=== PATIENT | male | born 1990 | race Caucasian/White ===

== ENCOUNTER 2017-04-26 04:24 | Emergency (ER) | payer BC ==
--- NOTE | 2017-04-26 04:53 | ED CLINICAL REPORT ---
Clinical Report - Physicians/Mid Levels [facility] [address] [place] [address] 04/26/2017 4:27 Patient: SERGO ROSSI Time Seen: 04:36. Arrived- By private vehicle. Historian- patient. HISTORY OF PRESENT ILLNESS Chief Complaint: SKIN RASH. This started about 2 hours ago and is still present. It was abrupt in onset and has been constant. It is described as itchy. It has been located on the trunk and in the right and left axilla. No cause has been identified. REVIEW OF SYSTEMS No chills, fever, sweats, calf pain or chest pain. No cough, difficulty breathing, pedal edema, palpitations or abdominal pain. No constipation, diarrhea, nausea, vomiting or urinary problems. All systems otherwise negative, except as recorded above. PAST HISTORY Problems: Back Pain. Obesity. Additional Surgeries: no known surgeries. Medications: Phentermine HCl Oral. Allergies: Amoxicillin. SOCIAL HISTORY Never smoker. No alcohol use or drug use. FAMILY HISTORY Denies family medical history. ADDITIONAL NOTES The nursing notes have been reviewed. PHYSICAL EXAM Vital Signs: 04/26/2017 04:31 BP: 121/71. HR: 107. RR: 28. O2 saturation: 97%. Temp: 98.5 F. Pain level now: 0/10. Have been reviewed. Appearance: Alert. He is morbidly obese. Eyes: Pupils equal, round and reactive to light. ENT: Pharynx normal. Neck: Neck supple. CVS: Normal heart rate and rhythm. Heart sounds normal. Respiratory: No respiratory distress. Breath sounds normal. Abdomen: Nontender. No organomegaly. Skin: The rash is generalized. The rash is urticarial, maculopapular and patchy. Extremities: Normal external inspection. No calf tenderness. PROGRESS AND PROCEDURES Course of Care: Patient is stable. Patient/family counseled. Old medical records ordered. Old records unavailable. Disposition: Discharged. Condition: stable. CLINICAL IMPRESSION Allergic reaction with skin rash of unknown cause. INSTRUCTIONS Warnings: GENERAL WARNINGS: Return or contact your physician immediately if your condition worsens or changes unexpectedly, if not improving as expected, or if other problems arise. Prescription Medications: Prednisone 20 mg: take 2 orally every day for 4 days. Dispense sufficient quantity. No refills. (start this on April 27 to complete the course started in the ER) OTC Medications: Benadryl (available over the counter): take according to label instructions. Follow-up: Follow up with your doctor in five days. Call for the next available appointment. Understanding of the discharge instructions verbalized by patient. (Electronically signed by Jevon Simon MD 04/26/2017 10:02)
--- NOTE | 2017-04-26 04:53 | ED NURSING NOTES ---
Clinical Report - Nurses [facility] [address] [place] [address] 04/26/2017 4:27 Patient: SERGO ROSSI TRIAGE Triage time 04:31. Acuity: LEVEL 3. Chief Complaint: SKIN RASH. Alert. ISAIAH COMA SCORE: Benedict Coma Scale: 15- eyes open spontaneously (4); best verbal response- oriented x 4 (5); best motor response- obeys commands (6). --04:36 Gama Rocha R.N. 04:31 04/26/17. BP: 121/71. HR: 107. RR: 28. O2 saturation: 97% on room air. Temp: 98.5 F. Pain level now: 0/10. --04:36 Gama Rocha R.N. Weight: 103.4 kg stated. Height/Length: 67 inches Per Patient. BMI: 35.7. --04:30 Gama Rocha R.N. Medications Phentermine HCl Oral. --04:32 Gama Rocha R.N. Allergies Amoxicillin. --04:32 Gama Rocha R.N. History Arrived by private vehicle. Historian: patient. Unaccompanied. Reported as (ears, axilla, groin, wasteline, shoulders). Onset. (2 hours ago). It is described as itchy. SOCIAL HX: Never smoker. No alcohol use or drug use. FALL RISK ASSESSMENT: Fall risk assessment completed. No fall risk identified. NUTRITIONAL RISK ASSESSMENT: The nutritional risk assessment revealed no deficiencies. FUNCTIONAL ASSESSMENT: Functional assessment: no impairments noted. LEARNING NEEDS ASSESSMENT: The learning needs assessment revealed no barriers. --04:36 Gama Rocha R.N. PROBLEMS: Obesity. --04:33 Gama Rocha R.N. Back Pain. --04:35 Gama Rocha R.N. ADDITIONAL SURGERIES: no known surgeries. Interventions ID band on patient. To treatment room. --04:36 Gama Rocha R.N. PHYSICAL ASSESSMENT Ambulatory to room. ( see triage notes). GENERAL / NEURO / PSYCH: Alert. Appears anxious. Does not appear in pain or distress. Oriented X 4. HEENT: Mucous membranes are pink. RESPIRATORY: Respirations not labored. Breath sounds within normal limits. ( Airway is patent). CVS: No abnormal heart sounds. Capillary refill less than 2 seconds. Pulses within normal limits. GI / : No abdominal tenderness. ( bowels sounds wnl). SKIN: Skin is warm and dry. Skin rash present- see triage. --04:37 Gama Rocha R.N. NURSING PROGRESS NOTES Pulse oximeter placed on patient. Patient gowned. Head of bed elevated. Reassurance given. Two patient identifiers checked. Call light placed in reach. Side rails up x 1. Bed placed in lowest position. Brakes of bed on. Patient ready for evaluation- chart flagged. Patient waiting for evaluation. --04:37 Gama Rocha R.N. 04:57 04/26/2017 Prednisone PO Tablets 40 mg given. Allergies verified and confirmed 5 rights. --05:02 Gama Rocha R.N. DISPOSITION / DISCHARGE Departure time: 05:03. Condition at departure: stable. No learning barriers present. Discharge instructions provided and reviewed with the patient. Reviewed warnings. Reviewed medication(s) side effects, precautions, dosing and course information. Prescription(s) given to the patient. Treatments reviewed. Reviewed referrals for followup. Patient verbalized understanding. Written instructions provided in Mongolian. The patient was discharged home, accompanied by spouse and unaccompanied at time of discharge. He left the Emergency Department ambulatory and via private vehicle. Patient driving. --05:03 Gama Rocha R.N. 05:02 04/26/17. HR: 104. O2 saturation: 94% on room air. --05:03 Gama Rocha R.N. 04:31 04/26/17. BP: 121/71. HR: 107. RR: 28. O2 saturation: 97% on room air. Temp: 98.5 F. Pain level now: 0/10. --05:03 Gama Rocha R.N. Locked/Released at 04/26/2017 5:03 by Gama Rocha R.N.
--- NOTE | 2017-04-26 04:53 | ED CLINICAL REPORT ---
Clinical Report - Physicians/Mid Levels [facility] [address] [place] [address] 04/26/2017 4:27 Patient: SERGO ROSSI Time Seen: 04:36. Arrived- By private vehicle. Historian- patient. HISTORY OF PRESENT ILLNESS Chief Complaint: SKIN RASH. This started about 2 hours ago and is still present. It was abrupt in onset and has been constant. It is described as itchy. It has been located on the trunk and in the right and left axilla. No cause has been identified. REVIEW OF SYSTEMS No chills, fever, sweats, calf pain or chest pain. No cough, difficulty breathing, pedal edema, palpitations or abdominal pain. No constipation, diarrhea, nausea, vomiting or urinary problems. All systems otherwise negative, except as recorded above. PAST HISTORY Problems: Back Pain. Obesity. Additional Surgeries: no known surgeries. Medications: Phentermine HCl Oral. Allergies: Amoxicillin. SOCIAL HISTORY Never smoker. No alcohol use or drug use. FAMILY HISTORY Denies family medical history. ADDITIONAL NOTES The nursing notes have been reviewed. PHYSICAL EXAM Vital Signs: 04/26/2017 04:31 BP: 121/71. HR: 107. RR: 28. O2 saturation: 97%. Temp: 98.5 F. Pain level now: 0/10. Have been reviewed. Appearance: Alert. He is morbidly obese. Eyes: Pupils equal, round and reactive to light. ENT: Pharynx normal. Neck: Neck supple. CVS: Normal heart rate and rhythm. Heart sounds normal. Respiratory: No respiratory distress. Breath sounds normal. Abdomen: Nontender. No organomegaly. Skin: The rash is generalized. The rash is urticarial, maculopapular and patchy. Extremities: Normal external inspection. No calf tenderness. PROGRESS AND PROCEDURES Course of Care: Patient is stable. Patient/family counseled. Old medical records ordered. Old records unavailable. Disposition: Discharged. Condition: stable. CLINICAL IMPRESSION Allergic reaction with skin rash of unknown cause. INSTRUCTIONS Warnings: GENERAL WARNINGS: Return or contact your physician immediately if your condition worsens or changes unexpectedly, if not improving as expected, or if other problems arise. Prescription Medications: Prednisone 20 mg: take 2 orally every day for 4 days. Dispense sufficient quantity. No refills. (start this on April 27 to complete the course started in the ER) OTC Medications: Benadryl (available over the counter): take according to label instructions. Follow-up: Follow up with your doctor in five days. Call for the next available appointment. Understanding of the discharge instructions verbalized by patient. (Electronically signed by Jevon Simon MD 04/26/2017 10:02)
--- NOTE | 2017-04-26 04:53 | ED ORDER SUMMARY ---
..... Patient: SERGO ROSSI OrderSheet [facility] VisitID: [id number] [address] [place] [place] [address] 27y, M Registration Date/Time: 04/26/2017 ORDER SHEET Weight: 103.4 kg (stated) Allergies: Amoxicillin GENERAL ORDERS: MEDICATION ORDERS: Prednisone PO 40 mg (NOW) (04:51 04/26/2017 Sophia PEREZ) (Ack 4:54 DDavis R.N.) (5:02 DDavis R.N.) IV FLUIDS: ORDER SHEET NOTES: [Electronically signed by Gama Rocha R.N. (05:03 04/26/2017)] [Electronically signed by Jevon Simon MD (10:02 04/26/2017)] [Electronically locked/signed by Gama Rocha R.N. (05:03 04/26/2017)]
--- NOTE | 2017-04-26 04:53 | ED ORDER SUMMARY ---
..... Patient: SERGO ROSSI OrderSheet [facility] VisitID: [id number] [address] [place] [address] 27y, M Registration Date/Time: 04/26/2017 ORDER SHEET Weight: 103.4 kg (stated) Allergies: Amoxicillin GENERAL ORDERS: MEDICATION ORDERS: Prednisone PO 40 mg (NOW) (04:51 04/26/2017 Sophia PEERZ) (Ack 4:54 DDavis R.N.) (5:02 DDavis R.N.) IV FLUIDS: ORDER SHEET NOTES: [Electronically signed by Gama Rocha R.N. (05:03 04/26/2017)] [Electronically signed by Jevon Simon MD (10:02 04/26/2017)] [Electronically locked/signed by Gama Rocha R.N. (05:03 04/26/2017)]
--- NOTE | 2017-04-26 10:02 | ED MAR SUMMARY ---
..... Medication Administration Record [facility] [address] [place] [address] Patient: SERGO ROSSI Visit ID: [id number] 27y, M Weight: 103.4 kg Height/Length: 67 in BMI: 35.7 ALLERGIES: Amoxicillin Given 04:57 04/26/2017 Gama Rocha R.N. Medication Administered: PREDNISONE [PO], Dose: 40 mg Tablets PO. Medication Ordered: Prednisone PO 40 mg (NOW).
--- NOTE | 2017-04-26 10:02 | ED MED RECONCILIATION SUMMARY ---
Patient: SERGO ROSSI Medication Reconciliation Report [facility] VisitID: [id number] [address] [place] [address] 27y, M Registration Date/Time: 04/26/2017 Weight: 103.4 kg Height/Length: 67 in. BMI: 35.7 ALLERGIES: Amoxicillin The patient's Home Medications are listed below: THE FOLLOWING MEDICATIONS NEED TO BE RECONCILED: Phentermine HCl Oral The source(s) of the original Home Medication information: Not obtained. The following Medications were given to the patient in the Emergency Department: Prednisone [PO] PO 40 mg, administered: 04/26/2017 4:57:00 AM The following Medications were prescribed to the patient: Benadryl (available over the counter): take according to label instructions. -- Jevon Simon MD Prednisone 20 mg: take 2 orally every day for 4 days. Dispense sufficient quantity. No refills.(start this on April 27 to complete the course started in the ER) -- Jevon Simon MD
--- NOTE | 2017-04-26 10:02 | ED MAR SUMMARY ---
..... Medication Administration Record [facility] [address] [place] [address] Patient: SERGO ROSSI Visit ID: [id number] 27y, M Weight: 103.4 kg Height/Length: 67 in BMI: 35.7 ALLERGIES: Amoxicillin Given 04:57 04/26/2017 Gama Rocha R.N. Medication Administered: PREDNISONE [PO], Dose: 40 mg Tablets PO. Medication Ordered: Prednisone PO 40 mg (NOW).
--- NOTE | 2017-04-26 10:02 | ED DISCHARGE INSTRUCTIONS ---
Patient: SERGO ROSSI General Instructions [facility] VisitID: [id number] [place] [address] 27y, M Registration Date/Time: 04/26/2017 Allergic reaction with skin rash of unknown cause. INSTRUCTIONS Warnings: GENERAL WARNINGS: Return or contact your physician immediately if your condition worsens or changes unexpectedly, if not improving as expected, or if other problems arise. Prescription Medications: Prednisone 20 mg: take 2 orally every day for 4 days. Dispense sufficient quantity. No refills. (start this on April 27 to complete the course started in the ER) OTC Medications: Benadryl (available over the counter): take according to label instructions. Follow-up: Follow up with your doctor in five days. Call for the next available appointment. Understanding of the discharge instructions verbalized by patient. ADDITIONAL INFORMATION Allergic Reaction,Generalized [Other] You are having an allergic reaction. This may cause an itchy rash, dizziness, fainting, trouble breathing or swallowing, and swelling of the face or other parts of the body. This can be caused by exposure to something in your surroundings that you have become sensitive to. This could be due to medicine or food. This could also be due to something you put on your skin or in your hair or something in the air. Often it is not possible to find out exactly what has caused your reaction. The goal of today's treatment is to relieve symptoms. The rash will usually fade over several days, but can sometimes last up to two weeks. Home Care: 1) If you know what you are allergic to, avoid it because future reactions could be worse than this one. 2) Avoid tight clothing and anything that heats up your skin (hot showers/baths, direct sunlight) since heat will make itching worse. 3) An ice pack will relieve local areas of intense itching and redness. Lanacaine cream or Solarcaine spray (or other product containing "benzocaine", available without a prescription) will reduce the itching. 4) Oral Benadryl (diphenhydramine) is an antihistamine available at drug and grocery stores. Unless a prescription antihistamine was given, Benadryl may be used to reduce itching if large areas of the skin are involved. Use lower doses during the daytime and higher doses at bedtime since the drug may make you sleepy. [NOTE: Do not use Benadryl if you have glaucoma or if you are a man with trouble urinating due to an enlarged prostate.] Claritin (loratidine) is an antihistamine that causes less drowsiness and is a good alternative for daytime use. Follow Up Follow Up with your doctor or this facility in two days if your symptoms do not continue to improve. If you had a severe reaction today, or if you have had several mild-moderate allergic reactions in the past, ask your doctor about allergy testing to find out what you are allergic to. If your reaction included dizziness, fainting or trouble breathing or swallowing, ask your doctor about carrying an Allergy Kit (injectable epinephrine) for home use. Get Prompt Medical Attention if any of the following occur: -- Trouble breathing or swallowing -- New or worse swelling in the face, eyelids, lips, mouth, tongue or throat -- Dizziness, weakness or fainting Prednisone Oral tablet What is this medicine? PREDNISONE (PRED ni sone) is a corticosteroid. It is commonly used to treat inflammation of the skin, joints, lungs, and other organs. Common conditions treated include asthma, allergies, and arthritis. It is also used for other conditions, such as blood disorders and diseases of the adrenal glands. How should I use this medicine? Take this medicine by mouth with a glass of water. Follow the directions on the prescription label. Take this medicine with food. If you are taking this medicine once a day, take it in the morning. Do not take more medicine than you are told to take. Do not suddenly stop taking your medicine because you may develop a severe reaction. Your doctor will tell you how much medicine to take. If your doctor wants you to stop the medicine, the dose may be slowly lowered over time to avoid any side effects. Talk to your financial operations analyst regarding the use of this medicine in children. Special care may be needed. What side effects may I notice from receiving this medicine? Side effects that you should report to your doctor or health morning caregiver as soon as possible: allergic reactions like skin rash, itching or hives, swelling of the face, lips, or tongue changes in emotions or moods changes in vision depressed mood eye pain fever or chills, cough, sore throat, pain or difficulty passing urine increased thirst swelling of ankles, feet Side effects that usually do not require medical attention (report to your doctor or health morning caregiver if they continue or are bothersome): confusion, excitement, restlessness headache nausea, vomiting skin problems, acne, thin and shiny skin trouble sleeping weight gain What may interact with this medicine? Do not take this medicine with any of the following medications: metyrapone mifepristone This medicine may also interact with the following medications: aminoglutethimide amphotericin B aspirin and aspirin-like medicines barbiturates certain medicines for diabetes, like glipizide or glyburide cholestyramine cholinesterase inhibitors cyclosporine digoxin diuretics ephedrine female hormones, like estrogens and control pills isoniazid ketoconazole NSAIDS, medicines for pain and inflammation, like ibuprofen or naproxen phenytoin rifampin toxoids vaccines warfarin What if I miss a dose? If you miss a dose, take it as soon as you can. If it is almost time for your next dose, talk to your doctor or health morning caregiver. You may need to miss a dose or take an extra dose. Do not take double or extra doses without advice. Where should I keep my medicine? Keep out of the reach of children. Store at room temperature between 15 and 30 degrees C (59 and 86 degrees F). Protect from light. Keep container tightly closed. Throw away any unused medicine after the expiration date. What should I tell my health care provider before I take this medicine? They need to know if you have any of these conditions: Giovanna's syndrome diabetes glaucoma heart disease high blood pressure infection (especially a virus infection such as chickenpox, cold sores, or herpes) kidney disease liver disease mental illness myasthenia gravis osteoporosis seizures stomach or intestine problems thyroid disease an unusual or allergic reaction to lactose, prednisone, other medicines, foods, dyes, or preservatives or trying to get breast-feeding What should I watch for while using this medicine? Visit your doctor or health morning caregiver for regular checks on your progress. If you are taking this medicine over a prolonged period, carry an identification card with your name and address, the type and dose of your medicine, and your doctor's name and address. This medicine may increase your risk of getting an infection. Tell your doctor or health morning caregiver if you are around anyone with measles or chickenpox, or if you develop sores or blisters that do not heal properly. If you are going to have surgery, tell your doctor or health morning caregiver that you have taken this medicine within the last twelve months. Ask your doctor or health morning caregiver about your diet. You may need to lower the amount of salt you eat. This medicine may affect blood sugar levels. If you have diabetes, check with your doctor or health morning caregiver before you change your diet or the dose of your diabetic medicine. Diphenhydramine Tannate Chewable tablet What is this medicine? DIPHENHYDRAMINE (dye ronnie anderson) is an antihistamine. It is used to treat the symptoms of an allergic reaction. How should I use this medicine? Take this medicine by mouth. Chew it completely before swallowing. Follow the directions on the prescription label. Take your doses at regular intervals. Do not take your medicine more often than directed. Talk to your financial operations analyst regarding the use of this medicine in children. While this drug may be prescribed for children as young as 6 years old for selected conditions, precautions do apply. Patients over 65 years old may have a stronger reaction and need a smaller dose. What side effects may I notice from receiving this medicine? Side effects that you should report to your doctor or health morning caregiver as soon as possible: allergic reactions like skin rash, itching or hives, swelling of the face, lips, or tongue changes in vision confused, agitated, nervous irregular or fast heartbeat tremor trouble passing urine unusual bleeding or bruising unusually weak or tired Side effects that usually do not require medical attention (report to your doctor or health morning caregiver if they continue or are bothersome): constipation, diarrhea drowsy headache loss of appetite stomach upset, vomiting thick mucous What may interact with this medicine? Do not take this medicine with any of the following medications: MAOIs like Carbex, Eldepryl, Marplan, Nardil, and Parnate This medicine may also interact with the following medications: alcohol barbiturates, like phenobarbital medicines for bladder spasm like oxybutynin, tolterodine medicines for blood pressure medicines for depression, anxiety, or psychotic disturbances medicines for movement abnormalities or Parkinson's disease medicines for sleep other medicines for cold, cough or allergy some medicines for the stomach like chlordiazepoxide, dicyclomine What if I miss a dose? If you miss a dose, take it as soon as you can. If it is almost time for your next dose, take only that dose. Do not take double or extra doses. Where should I keep my medicine? Keep out of the reach of children. Store at room temperature between 15 and 30 degrees C (59 and 86 degrees F). Keep container closed tightly. Throw away any unused medicine after the expiration date. What should I tell my health care provider before I take this medicine? They need to know if you have any of these conditions: glaucoma high blood pressure heart disease liver disease lung or breathing disease, like asthma pain or difficulty passing urine phenylketonuria prostate trouble ulcers or other stomach problems an unusual or allergic reaction to diphenhydramine, sulfites, other medicines foods, dyes, or preservatives or trying to get breast-feeding What should I watch for while using this medicine? Visit your doctor or health morning caregiver for regular check ups. Tell your doctor or healthcare professional if your symptoms do not start to get better or if they get worse. Your mouth may get dry. Chewing sugarless gum or sucking hard candy, and drinking plenty of water may help. Contact your doctor if the problem does not go away or is severe. This medicine may cause dry eyes and blurred vision. If you wear contact lenses you may feel some discomfort. Lubricating drops may help. See your eye doctor if the problem does not go away or is severe. You may get drowsy or dizzy. Do not drive, use machinery, or do anything that needs mental alertness until you know how this medicine affects you. Do not stand or sit up quickly, especially if you are an older patient. This reduces the risk of dizzy or fainting spells. Alcohol may interfere with the effect of this medicine. Avoid alcoholic drinks. You have been given the following additional information: Allergic Reaction, Other (General) Prednisone Oral tablet Diphenhydramine Tannate Chewable tablet (Electronically signed by Jevon Simon MD 04/26/2017 10:02)
--- NOTE | 2017-04-26 10:02 | ED DISCHARGE INSTRUCTIONS ---
Patient: SERGO ROSSI General Instructions [facility] VisitID: [id number] [place] [address] 27y, M Registration Date/Time: 04/26/2017 Allergic reaction with skin rash of unknown cause. INSTRUCTIONS Warnings: GENERAL WARNINGS: Return or contact your physician immediately if your condition worsens or changes unexpectedly, if not improving as expected, or if other problems arise. Prescription Medications: Prednisone 20 mg: take 2 orally every day for 4 days. Dispense sufficient quantity. No refills. (start this on April 27 to complete the course started in the ER) OTC Medications: Benadryl (available over the counter): take according to label instructions. Follow-up: Follow up with your doctor in five days. Call for the next available appointment. Understanding of the discharge instructions verbalized by patient. ADDITIONAL INFORMATION Allergic Reaction,Generalized [Other] You are having an allergic reaction. This may cause an itchy rash, dizziness, fainting, trouble breathing or swallowing, and swelling of the face or other parts of the body. This can be caused by exposure to something in your surroundings that you have become sensitive to. This could be due to medicine or food. This could also be due to something you put on your skin or in your hair or something in the air. Often it is not possible to find out exactly what has caused your reaction. The goal of today's treatment is to relieve symptoms. The rash will usually fade over several days, but can sometimes last up to two weeks. Home Care: 1) If you know what you are allergic to, avoid it because future reactions could be worse than this one. 2) Avoid tight clothing and anything that heats up your skin (hot showers/baths, direct sunlight) since heat will make itching worse. 3) An ice pack will relieve local areas of intense itching and redness. Lanacaine cream or Solarcaine spray (or other product containing "benzocaine", available without a prescription) will reduce the itching. 4) Oral Benadryl (diphenhydramine) is an antihistamine available at drug and grocery stores. Unless a prescription antihistamine was given, Benadryl may be used to reduce itching if large areas of the skin are involved. Use lower doses during the daytime and higher doses at bedtime since the drug may make you sleepy. [NOTE: Do not use Benadryl if you have glaucoma or if you are a man with trouble urinating due to an enlarged prostate.] Claritin (loratidine) is an antihistamine that causes less drowsiness and is a good alternative for daytime use. Follow Up Follow Up with your doctor or this facility in two days if your symptoms do not continue to improve. If you had a severe reaction today, or if you have had several mild-moderate allergic reactions in the past, ask your doctor about allergy testing to find out what you are allergic to. If your reaction included dizziness, fainting or trouble breathing or swallowing, ask your doctor about carrying an Allergy Kit (injectable epinephrine) for home use. Get Prompt Medical Attention if any of the following occur: -- Trouble breathing or swallowing -- New or worse swelling in the face, eyelids, lips, mouth, tongue or throat -- Dizziness, weakness or fainting Prednisone Oral tablet What is this medicine? PREDNISONE (PRED ni sone) is a corticosteroid. It is commonly used to treat inflammation of the skin, joints, lungs, and other organs. Common conditions treated include asthma, allergies, and arthritis. It is also used for other conditions, such as blood disorders and diseases of the adrenal glands. How should I use this medicine? Take this medicine by mouth with a glass of water. Follow the directions on the prescription label. Take this medicine with food. If you are taking this medicine once a day, take it in the morning. Do not take more medicine than you are told to take. Do not suddenly stop taking your medicine because you may develop a severe reaction. Your doctor will tell you how much medicine to take. If your doctor wants you to stop the medicine, the dose may be slowly lowered over time to avoid any side effects. Talk to your machine ii engraver regarding the use of this medicine in children. Special care may be needed. What side effects may I notice from receiving this medicine? Side effects that you should report to your doctor or health account executive healthcare as soon as possible: allergic reactions like skin rash, itching or hives, swelling of the face, lips, or tongue changes in emotions or moods changes in vision depressed mood eye pain fever or chills, cough, sore throat, pain or difficulty passing urine increased thirst swelling of ankles, feet Side effects that usually do not require medical attention (report to your doctor or health account executive healthcare if they continue or are bothersome): confusion, excitement, restlessness headache nausea, vomiting skin problems, acne, thin and shiny skin trouble sleeping weight gain What may interact with this medicine? Do not take this medicine with any of the following medications: metyrapone mifepristone This medicine may also interact with the following medications: aminoglutethimide amphotericin B aspirin and aspirin-like medicines barbiturates certain medicines for diabetes, like glipizide or glyburide cholestyramine cholinesterase inhibitors cyclosporine digoxin diuretics ephedrine female hormones, like estrogens and control pills isoniazid ketoconazole NSAIDS, medicines for pain and inflammation, like ibuprofen or naproxen phenytoin rifampin toxoids vaccines warfarin What if I miss a dose? If you miss a dose, take it as soon as you can. If it is almost time for your next dose, talk to your doctor or health account executive healthcare. You may need to miss a dose or take an extra dose. Do not take double or extra doses without advice. Where should I keep my medicine? Keep out of the reach of children. Store at room temperature between 15 and 30 degrees C (59 and 86 degrees F). Protect from light. Keep container tightly closed. Throw away any unused medicine after the expiration date. What should I tell my health care provider before I take this medicine? They need to know if you have any of these conditions: Giovanna's syndrome diabetes glaucoma heart disease high blood pressure infection (especially a virus infection such as chickenpox, cold sores, or herpes) kidney disease liver disease mental illness myasthenia gravis osteoporosis seizures stomach or intestine problems thyroid disease an unusual or allergic reaction to lactose, prednisone, other medicines, foods, dyes, or preservatives or trying to get breast-feeding What should I watch for while using this medicine? Visit your doctor or health account executive healthcare for regular checks on your progress. If you are taking this medicine over a prolonged period, carry an identification card with your name and address, the type and dose of your medicine, and your doctor's name and address. This medicine may increase your risk of getting an infection. Tell your doctor or health account executive healthcare if you are around anyone with measles or chickenpox, or if you develop sores or blisters that do not heal properly. If you are going to have surgery, tell your doctor or health account executive healthcare that you have taken this medicine within the last twelve months. Ask your doctor or health account executive healthcare about your diet. You may need to lower the amount of salt you eat. This medicine may affect blood sugar levels. If you have diabetes, check with your doctor or health account executive healthcare before you change your diet or the dose of your diabetic medicine. Diphenhydramine Tannate Chewable tablet What is this medicine? DIPHENHYDRAMINE (dye ronnie anderson) is an antihistamine. It is used to treat the symptoms of an allergic reaction. How should I use this medicine? Take this medicine by mouth. Chew it completely before swallowing. Follow the directions on the prescription label. Take your doses at regular intervals. Do not take your medicine more often than directed. Talk to your machine ii engraver regarding the use of this medicine in children. While this drug may be prescribed for children as young as 6 years old for selected conditions, precautions do apply. Patients over 65 years old may have a stronger reaction and need a smaller dose. What side effects may I notice from receiving this medicine? Side effects that you should report to your doctor or health account executive healthcare as soon as possible: allergic reactions like skin rash, itching or hives, swelling of the face, lips, or tongue changes in vision confused, agitated, nervous irregular or fast heartbeat tremor trouble passing urine unusual bleeding or bruising unusually weak or tired Side effects that usually do not require medical attention (report to your doctor or health account executive healthcare if they continue or are bothersome): constipation, diarrhea drowsy headache loss of appetite stomach upset, vomiting thick mucous What may interact with this medicine? Do not take this medicine with any of the following medications: MAOIs like Carbex, Eldepryl, Marplan, Nardil, and Parnate This medicine may also interact with the following medications: alcohol barbiturates, like phenobarbital medicines for bladder spasm like oxybutynin, tolterodine medicines for blood pressure medicines for depression, anxiety, or psychotic disturbances medicines for movement abnormalities or Parkinson's disease medicines for sleep other medicines for cold, cough or allergy some medicines for the stomach like chlordiazepoxide, dicyclomine What if I miss a dose? If you miss a dose, take it as soon as you can. If it is almost time for your next dose, take only that dose. Do not take double or extra doses. Where should I keep my medicine? Keep out of the reach of children. Store at room temperature between 15 and 30 degrees C (59 and 86 degrees F). Keep container closed tightly. Throw away any unused medicine after the expiration date. What should I tell my health care provider before I take this medicine? They need to know if you have any of these conditions: glaucoma high blood pressure heart disease liver disease lung or breathing disease, like asthma pain or difficulty passing urine phenylketonuria prostate trouble ulcers or other stomach problems an unusual or allergic reaction to diphenhydramine, sulfites, other medicines foods, dyes, or preservatives or trying to get breast-feeding What should I watch for while using this medicine? Visit your doctor or health account executive healthcare for regular check ups. Tell your doctor or healthcare professional if your symptoms do not start to get better or if they get worse. Your mouth may get dry. Chewing sugarless gum or sucking hard candy, and drinking plenty of water may help. Contact your doctor if the problem does not go away or is severe. This medicine may cause dry eyes and blurred vision. If you wear contact lenses you may feel some discomfort. Lubricating drops may help. See your eye doctor if the problem does not go away or is severe. You may get drowsy or dizzy. Do not drive, use machinery, or do anything that needs mental alertness until you know how this medicine affects you. Do not stand or sit up quickly, especially if you are an older patient. This reduces the risk of dizzy or fainting spells. Alcohol may interfere with the effect of this medicine. Avoid alcoholic drinks. You have been given the following additional information: Allergic Reaction, Other (General) Prednisone Oral tablet Diphenhydramine Tannate Chewable tablet (Electronically signed by Jevon Simon MD 04/26/2017 10:02)
--- NOTE | 2017-04-26 10:02 | ED MED RECONCILIATION SUMMARY ---
Patient: SERGO ROSSI Medication Reconciliation Report [facility] VisitID: [id number] [address] [place] [address] 27y, M Registration Date/Time: 04/26/2017 Weight: 103.4 kg Height/Length: 67 in. BMI: 35.7 ALLERGIES: Amoxicillin The patient's Home Medications are listed below: THE FOLLOWING MEDICATIONS NEED TO BE RECONCILED: Phentermine HCl Oral The source(s) of the original Home Medication information: Not obtained. The following Medications were given to the patient in the Emergency Department: Prednisone [PO] PO 40 mg, administered: 04/26/2017 4:57:00 AM The following Medications were prescribed to the patient: Benadryl (available over the counter): take according to label instructions. -- Jevon Simon MD Prednisone 20 mg: take 2 orally every day for 4 days. Dispense sufficient quantity. No refills.(start this on April 27 to complete the course started in the ER) -- Jevon Simon MD
== END 2017-04-26 05:00 | disposition home or self-care (01) ==
LOC: ED SRH 04:24
DX: L50.0 Allergic urticaria (principal); T78.40XA Allergy, unspecified, initial encounter

== ENCOUNTER 2017-04-27 07:30 | Emergency (ER) | payer BC ==
--- NOTE | 2017-04-27 09:13 | ED CLINICAL REPORT ---
Clinical Report - Physicians/Mid Levels [facility] [address] [place] [address] 04/27/2017 7:30 Patient: SERGO ROSSI Time Seen: 07:58. Arrived- By private vehicle. Historian- patient. HISTORY OF PRESENT ILLNESS Chief Complaint: ALLERGIC REACTION, SKIN RASH, ITCHING and "HIVES". FACIAL SWELLING. This started yesterday and is still present. The patient has had a skin rash, itching and swelling but not had trouble swallowing. No difficulty breathing, dizziness or fainting episodes. No cause has been identified. No recent medication, insect bite or food exposure. The patient self administered medication prior to arrival including Benadryl. (PT took Benadryl, prior to coming, and states he is feeling better. He is concerned, because the Benadryl and prednisone he is on have not resolved his sx. He states that when the meds wear off, sx return, as happened this morning.). Similar symptoms previously: Occasionally. Recent medical care: The patient was seen recently at this facility. REVIEW OF SYSTEMS No eye problems, sore throat, cough, sputum production or fever. No chills, joint pain, enlarged lymph nodes, headache or weakness. No numbness, chest pain, palpitations, abdominal pain or vomiting. No black stools, urinary frequency, pain with urination, diarrhea or bloody stools. All systems otherwise negative, except as recorded above. PAST HISTORY Problems: Allergic Reaction. Back Pain. Obesity. Additional Surgeries: no known surgeries. Medications: Phentermine HCl Oral. Allergies: Amoxicillin. SOCIAL HISTORY Never smoker. No alcohol use or drug use. ADDITIONAL NOTES The nursing notes have been reviewed. PHYSICAL EXAM Vital Signs: 04/27/2017 07:34 BP: 123/71. HR: 86. RR: 18. O2 saturation: 98%. Temp: 98.1 F. Have been reviewed. Appearance: Alert. Oriented X3. No acute distress. Head and Neck: Normal external inspection. Eyes: Pupils equal, round and reactive to light. ENT: Nose normal. Pharynx normal. Voice normal. Neck: Neck supple. CVS: Normal heart rate and rhythm. Heart sounds normal. Respiratory: No respiratory distress. Breath sounds normal. Abdomen: Nontender. Skin: Skin warm and dry. Extremities: Normal external inspection. Extremities nontender. Skin: Moderate generalized urticaria. Normal skin color. Neuro: Oriented X 3. No motor deficit. No sensory deficit. LABS, X-RAYS, AND EKG Pulse Oximetry: 04/27/2017 07:34 O2 saturation: 98%. (FIO2 - room air). Interpretation: normal. PROGRESS AND PROCEDURES Course of Care: Pt was given a dose of Pepcid, as this had not been included in pt's initial regimen. We discussed that pt is not having an anaphylactic reaction at this time, but that epi may help alleviate the sx he is having. We did discuss the potential side effects of epinephrine, such as palpitations. Pt stated he would like to try a dose, and did report improvement on re-evaluation. I have advised the pt that it is not uncommon for a systemic allergic rxn to persist for several days after exposure, and that he should continue the medications for symptomatic relief. Patient and spouse counseled in person regarding the patient's stable condition, diagnosis and need for follow-up. Concerns were addressed. Old medical records reviewed. Disposition: Discharged. Condition: stable and improved. CLINICAL IMPRESSION Acute hives secondary to unknown cause. INSTRUCTIONS Do not work today. (You are on the correct medications for an allergic reaction. Most likely you're reacting to something that is within your system, whether it is something you're allergic to or whether it is a virus you're fighting off. This is the reason that your symptoms keep recurring and they will continue to do so until the offending agent has been washed out your system.). Warnings: GENERAL WARNINGS: Return or contact your physician immediately if your condition worsens or changes unexpectedly, if not improving as expected, or if other problems arise. Your Current Medications: CONTINUE TAKING THE FOLLOWING MEDICATIONS: Phentermine HCl Oral. Prescription Medications: Pepcid 20 mg: take 1 orally at bedtime for 5 days. Dispense five (5). No refills. Substitution is permissible. Follow-up: Follow up with your doctor as scheduled. Understanding of the discharge instructions verbalized by patient and family. (Electronically signed by Adenike Villegas MD 05/10/2017 22:22)
--- NOTE | 2017-04-27 09:13 | ED ORDER SUMMARY ---
..... Patient: SERGO ROSSI OrderSheet Merged With [facility] VisitID: [id number] [place] [address] 27y, M Registration Date/Time: 04/27/2017 ORDER SHEET Weight: 103.4 kg (stated) Allergies: Amoxicillin GENERAL ORDERS: MEDICATION ORDERS: Pepcid PO 20 mg (NOW) (08:34 04/27/2017 Abran PEREZ) (8:59 LWhalen R.N.) Epinephrine IM 0.3 mg (HIGH ALERT MEDICATION, NOW) (:04/27/2017 Abran PEREZ) (8:58 LWhalen R.N.) IV FLUIDS: ORDER SHEET NOTES: [Electronically signed by Carly Alarcon R.N. (15:48 04/27/2017)] [Electronically signed by Adenike Villegas MD (22:22 05/10/2017)] [Electronically locked/signed by Carly Alarcon R.N. (15:48 04/27/2017)]
--- NOTE | 2017-04-27 09:13 | ED NURSING NOTES ---
Clinical Report - Nurses [facility] [address] [place] [address] 04/27/2017 7:30 [id number] TRI[facility] Triage time 07:35 Zain 2016. Acuity: LEVEL 4. Chief Complaint: ALLERGIC REACTION and SKIN RASH and SWELLING ISAIAH COMA SCORE: [place] Coma Scale: 15- eyes open spontaneously (4); best verbal response- oriented x 4 (5); best motor response- obeys commands (6). --07:39 Carly Alarcon R.N. 07:34 04/27/17. BP: 123/71. HR: 86. RR: 18. O2 saturation: 98%. Temp: 98.1 F. Pain level now 0/10. --07:39 Carly Alarcon R.N. Weight: 103.4 kg stated. Height/Length: 67 inches Per Patient. BMI: 35.7. --07:38 Carly Alarcon R.N. Medications Phentermine HCl Oral. --07:38 Carly Alarcon R.N. Allergies Amoxicillin. --07:38 Carly Alarcon R.N. History Arrived by private vehicle. Historian: patient. Accompanied by family. This started yesterday. ( Was here yesterday and was seen for rash and allergic reaction. Was told that he needed to take prednisone and benadryl and he has done that but feels worse then yesterday. Now feeling eyes swollen and in mouth swelling.). He has had a skin rash, itching and swelling. No difficulty breathing, fainting episodes or weakness. 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 PAST MEDICAL HX: Immunizations: up-to-date. SOCIAL HX: Never smoker. No alcohol use or drug use. SELF HARM ASSESSMENT: A self harm assessment was performed. The patient answered "no" to the question "Have you recently felt down, depressed, or hopeless?" and "Do you have thoughts of harming or killing yourself?". FALL RISK ASSESSMENT: Fall risk assessment completed. No fall risk identified. NUTRITIONAL RISK ASSESSMENT: The nutritional risk assessment revealed no deficiencies. FUNCTIONAL ASSESSMENT: Functional assessment: no impairments noted. LEARNING NEEDS ASSESSMENT: The learning needs assessment revealed no barriers. ABUSE ASSESSMENT: Abuse assessment: (yes) The patient was asked "Do you feel safe in your home?". SKIN INTEGRITY ASSESSMENT: Skin integrity risk assessment completed. No skin integrity risk identified. --07:39 Carly Alarcon R.N. PROBLEMS: Allergic Reaction. Back Pain. Obesity. --07:38 Carly Alarcon R.N. ADDITIONAL SURGERIES: no known surgeries. Interventions ID and allergy band on patient. --07:39 Carly Alarcon R.N. PHYSICAL ASSESSMENT Ambulatory to room. GENERAL / NEURO / PSYCH: Alert. Appears anxious. Oriented X 4. HEENT: Pupils equal, round and reactive to light. Mucous membranes are pink. RESPIRATORY: Respirations not labored. Breath sounds within normal limits. CVS: Normal sinus rhythm noted. Capillary refill less than 2 seconds. Pulses within normal limits. GI / : ( Diarrhea for 1 week.). SKIN: Skin rash present. Skin tenderness present. Swelling present. --07:41 Carly Alarcon R.N. NURSING PROGRESS NOTES The initial plan of care for this patient includes an assessment with efforts to address patient positioning, appropriate ambient lighting and comfortable environmental temperature; impairment of the integumentary system. Pulse oximeter and NIBP monitor placed on patient. Patient gowned. Reassurance given. Call light placed in reach. Side rails up x 1. Bed placed in lowest position. Brakes of bed on. --07:42 Carly Alarcon R.N. 08:58 04/27/2017 Epinephrine (EPINEPHrine HCl) IM 0.3 mg given. Given in the right deltoid. Allergies verified and confirmed 5 rights. --08:58 Carly Alarcon R.N. 08:59 04/27/2017 Pepcid (Famotidine) PO Tablets 20 mg given. Allergies verified and confirmed 5 rights. --08:59 Carly Alarcon R.N. DISPOSITION / DISCHARGE Condition at departure: improved. ( pt dc/d only by this RN, pt reports improvement in rash since meds given, and s/o at bedside "his eyes aren't as swollen either"). No learning barriers present. Discharge instructions provided and reviewed with the patient and spouse. Reviewed medication(s) side effects and course information. Prescription(s) given to the patient. Work note given (by ). Verbalized understanding. Written instructions provided in Gabonese. The patient was discharged by the physician. He was discharged home and accompanied by spouse. He left the Emergency Department ambulatory and via private vehicle. --09:24 Sirisha Black R.N. 09:21 04/27/17. BP: 119/72. HR: 93. RR: 17. O2 saturation: 100%. Temp: deferred. Pain level now: 0/10. --09:24 Sirisha Black R.N. Locked/Released at 04/27/2017 15:48 by Carly Alarcon R.N.
--- NOTE | 2017-04-27 09:13 | ED ORDER SUMMARY ---
..... Patient: SERGO ROSSI OrderSheet VisitID: [id number] [place] [address] 27y, M Registration Date/Time: 04/27/2017 ORDER SHEET Weight: 103.4 kg (stated) Allergies: Amoxicillin GENERAL ORDERS: MEDICATION ORDERS: Pepcid PO 20 mg (NOW) (08:34 04/27/2017 Abran PEREZ) (8:59 LWhalen R.N.) Epinephrine IM 0.3 mg (HIGH ALERT MEDICATION, NOW) (:04/27/2017 Abran PEREZ) (8:58 LWhalen R.N.) IV FLUIDS: ORDER SHEET NOTES: [Electronically signed by Carly Alarcon R.N. (15:48 04/27/2017)] [Electronically signed by Adenike Villegas MD (22:22 05/10/2017)] [Electronically locked/signed by Carly Alarcon R.N. (15:48 04/27/2017)]
--- NOTE | 2017-04-27 09:13 | ED NURSING NOTES ---
Clinical Report - Nurses [facility] [address] [place] [address] 04/27/2017 7:30 [id number] Triage time 07:35 Zain 2016. Acuity: LEVEL 4. Chief Complaint: ALLERGIC REACTION and SKIN RASH and SWELLING ISAIAH COMA SCORE: [place] Coma Scale: 15- eyes open spontaneously (4); best verbal response- oriented x 4 (5); best motor response- obeys commands (6). --07:39 Carly Alarcon R.N. 07:34 04/27/17. BP: 123/71. HR: 86. RR: 18. O2 saturation: 98%. Temp: 98.1 F. Pain level now 0/10. --07:39 Carly Alarcon R.N. Weight: 103.4 kg stated. Height/Length: 67 inches Per Patient. BMI: 35.7. --07:38 Carly Alarcon R.N. Medications Phentermine HCl Oral. --07:38 Carly Alarcon R.N. Allergies Amoxicillin. --07:38 Carly Alarcon R.N. History Arrived by private vehicle. Historian: patient. Accompanied by family. This started yesterday. ( Was here yesterday and was seen for rash and allergic reaction. Was told that he needed to take prednisone and benadryl and he has done that but feels worse then yesterday. Now feeling eyes swollen and in mouth swelling.). He has had a skin rash, itching and swelling. No difficulty breathing, fainting episodes or weakness. 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 PAST MEDICAL HX: Immunizations: up-to-date. SOCIAL HX: Never smoker. No alcohol use or drug use. SELF HARM ASSESSMENT: A self harm assessment was performed. The patient answered "no" to the question "Have you recently felt down, depressed, or hopeless?" and "Do you have thoughts of harming or killing yourself?". FALL RISK ASSESSMENT: Fall risk assessment completed. No fall risk identified. NUTRITIONAL RISK ASSESSMENT: The nutritional risk assessment revealed no deficiencies. FUNCTIONAL ASSESSMENT: Functional assessment: no impairments noted. LEARNING NEEDS ASSESSMENT: The learning needs assessment revealed no barriers. ABUSE ASSESSMENT: Abuse assessment: (yes) The patient was asked "Do you feel safe in your home?". SKIN INTEGRITY ASSESSMENT: Skin integrity risk assessment completed. No skin integrity risk identified. --07:39 Carly Alarcon R.N. PROBLEMS: Allergic Reaction. Back Pain. Obesity. --07:38 Carly Alarcon R.N. ADDITIONAL SURGERIES: no known surgeries. Interventions ID and allergy band on patient. --07:39 Carly Alarcon R.N. PHYSICAL ASSESSMENT Ambulatory to room. GENERAL / NEURO / PSYCH: Alert. Appears anxious. Oriented X 4. HEENT: Pupils equal, round and reactive to light. Mucous membranes are pink. RESPIRATORY: Respirations not labored. Breath sounds within normal limits. CVS: Normal sinus rhythm noted. Capillary refill less than 2 seconds. Pulses within normal limits. GI / : ( Diarrhea for 1 week.). SKIN: Skin rash present. Skin tenderness present. Swelling present. --07:41 Carly Alarcon R.N. NURSING PROGRESS NOTES The initial plan of care for this patient includes an assessment with efforts to address patient positioning, appropriate ambient lighting and comfortable environmental temperature; impairment of the integumentary system. Pulse oximeter and NIBP monitor placed on patient. Patient gowned. Reassurance given. Call light placed in reach. Side rails up x 1. Bed placed in lowest position. Brakes of bed on. --07:42 Carly Alarcon R.N. 08:58 04/27/2017 Epinephrine (EPINEPHrine HCl) IM 0.3 mg given. Given in the right deltoid. Allergies verified and confirmed 5 rights. --08:58 Carly Alarcon R.N. 08:59 04/27/2017 Pepcid (Famotidine) PO Tablets 20 mg given. Allergies verified and confirmed 5 rights. --08:59 Carly Alarcon R.N. DISPOSITION / DISCHARGE Condition at departure: improved. ( pt dc/d only by this RN, pt reports improvement in rash since meds given, and s/o at bedside "his eyes aren't as swollen either"). No learning barriers present. Discharge instructions provided and reviewed with the patient and spouse. Reviewed medication(s) side effects and course information. Prescription(s) given to the patient. Work note given (by ). Verbalized understanding. Written instructions provided in [place]. The patient was discharged by the physician. He was discharged home and accompanied by spouse. He left the Emergency Department ambulatory and via private vehicle. --09:24 Sirisha Black R.N. 09:21 04/27/17. BP: 119/72. HR: 93. RR: 17. O2 saturation: 100%. Temp: deferred. Pain level now: 0/10. --09:24 Sirisha Black R.N. Locked/Released at 04/27/2017 15:48 by Carly Alarcon R.N.
--- NOTE | 2017-05-10 22:23 | ED MED RECONCILIATION SUMMARY ---
Patient: SERGO ROSSI Medication Reconciliation Report [facility] VisitID: [id number] [address] [place] [address] 27y, M Registration Date/Time: 04/27/2017 Weight: 103.4 kg Height/Length: 67 in. BMI: 35.7 ALLERGIES: Amoxicillin The patient's Home Medications are listed below: CONTINUE TAKING THE FOLLOWING MEDICATIONS: Phentermine HCl Oral The source(s) of the original Home Medication information: Not obtained. The following Medications were given to the patient in the Emergency Department: Epinephrine [IM] IM 0.3 mg, administered: 04/27/2017 8:58:00 AM Pepcid [PO] PO 20 mg, administered: 04/27/2017 8:59:00 AM The following Medications were prescribed to the patient: Pepcid 20 mg: take 1 orally at bedtime for 5 days. Dispense five (5). No refills. Substitution is permissible. -- Adenike Villegas MD
--- NOTE | 2017-05-10 22:23 | ED MAR SUMMARY ---
..... Medication Administration Record [facility] [address] [place] [address] Patient: SERGO ROSSI Visit ID: [id number] 27y, M Weight: 103.4 kg Height/Length: 67 in BMI: 35.7 ALLERGIES: Amoxicillin Given 08:58 04/27/2017 Carly Alarcon, RServandoNServando Medication Administered: EPINEPHRINE [IM] (EPINEPHRINE HCL), Dose: 0.3 mg IM. Medication Ordered: Epinephrine IM 0.3 mg (HIGH ALERT MEDICATION, NOW). Given 08:59 04/27/2017 Carly Alarcon, R.N. Medication Administered: PEPCID [PO] (FAMOTIDINE), Dose: 20 mg Tablets PO. Medication Ordered: Pepcid PO 20 mg (NOW).
--- NOTE | 2017-05-10 22:23 | ED MED RECONCILIATION SUMMARY ---
Patient: SERGO ROSSI Medication Reconciliation Report [facility] VisitID: [id number] [address] [place] [address] 27y, M Registration Date/Time: 04/27/2017 Weight: 103.4 kg Height/Length: 67 in. BMI: 35.7 ALLERGIES: Amoxicillin The patient's Home Medications are listed below: CONTINUE TAKING THE FOLLOWING MEDICATIONS: Phentermine HCl Oral The source(s) of the original Home Medication information: Not obtained. The following Medications were given to the patient in the Emergency Department: Epinephrine [IM] IM 0.3 mg, administered: 04/27/2017 8:58:00 AM Pepcid [PO] PO 20 mg, administered: 04/27/2017 8:59:00 AM The following Medications were prescribed to the patient: Pepcid 20 mg: take 1 orally at bedtime for 5 days. Dispense five (5). No refills. Substitution is permissible. -- Adenike Villegas MD
--- NOTE | 2017-05-10 22:23 | ED MAR SUMMARY ---
..... Medication Administration Record [facility] [address] [place] [address] Patient: SERGO ROSSI Visit ID: [id number] 27y, M Weight: 103.4 kg Height/Length: 67 in BMI: 35.7 ALLERGIES: Amoxicillin Given 08:58 04/27/2017 Carly Alarcon, RServandoNServando Medication Administered: EPINEPHRINE [IM] (EPINEPHRINE HCL), Dose: 0.3 mg IM. Medication Ordered: Epinephrine IM 0.3 mg (HIGH ALERT MEDICATION, NOW). Given 08:59 04/27/2017 Carly Alarcon, R.N. Medication Administered: PEPCID [PO] (FAMOTIDINE), Dose: 20 mg Tablets PO. Medication Ordered: Pepcid PO 20 mg (NOW).
--- NOTE | 2017-05-10 22:23 | ED DISCHARGE INSTRUCTIONS ---
Patient: SERGO ROSSI General Instructions [facility] VisitID: [id number] [place] [address] 27y, M Registration Date/Time: 04/27/2017 Acute hives secondary to unknown cause. INSTRUCTIONS Do not work today. (You are on the correct medications for an allergic reaction. Most likely you're reacting to something that is within your system, whether it is something you're allergic to or whether it is a virus you're fighting off. This is the reason that your symptoms keep recurring and they will continue to do so until the offending agent has been washed out your system.). Warnings: GENERAL WARNINGS: Return or contact your physician immediately if your condition worsens or changes unexpectedly, if not improving as expected, or if other problems arise. Your Current Medications: CONTINUE TAKING THE FOLLOWING MEDICATIONS: Phentermine HCl Oral. Prescription Medications: Pepcid 20 mg: take 1 orally at bedtime for 5 days. Dispense five (5). No refills. Substitution is permissible. Follow-up: Follow up with your doctor as scheduled. Understanding of the discharge instructions verbalized by patient and family. ADDITIONAL INFORMATION Hives Hives is an itchy red rash that can appear suddenly and move about your body. It goes away in one place and comes back in another. This is usually caused by something that you are allergic to such as: EATING: fruit, shellfish, chocolate, nuts, tomatoes or medicine BREATHING: pollens, animal hair/fur or mold spores Exposure to cold air, sun rays or exercise can sometimes cause an attack. Many times we cannot find a cause. Medicines can be used to reduce itching and swelling. The rash will usually fade over several days, but can sometimes last up to two weeks. Home Care: 1) Do not wear tight clothing and do not take hot baths/showers since heat can make the itching worse. 2) An ice pack (ice cubes in a plastic bag, wrapped in a towel) will reduce local areas of redness and itching. Lanacaine cream or Solarcaine spray (or other product containing "benzocaine") will reduce itching. 3) Oral Benadryl (diphenhydramine) is an antihistamine available at drug and grocery stores. Unless a prescription antihistamine was given, Benadryl may be used to reduce itching if large areas of the skin are involved. Use lower doses during the daytime and higher doses at bedtime since the drug may make you sleepy. [NOTE: Do not use Benadryl if you have glaucoma or if you are a man with trouble urinating due to an enlarged prostate.] Claritin (loratadine) is an antihistamine that causes less drowsiness and is a good alternative for daytime use. 4) If you know what you are sensitive to, avoid this substance. Future reactions could be worse than this one. Follow Up with your doctor as directed by our staff, if symptoms do not begin to improve in two days. If you have had a severe reaction, or have had several episodes of hives, then ask your doctor about allergy testing to find out what you are allergic to. Get Prompt Medical Attention if any of the following occur: -- Trouble breathing or swallowing -- New or increased swelling in the face, lips, tongue or throat -- Dizziness, weakness or fainting Allergic Reaction,Generalized [Other] You are having an allergic reaction. This may cause an itchy rash, dizziness, fainting, trouble breathing or swallowing, and swelling of the face or other parts of the body. This can be caused by exposure to something in your surroundings that you have become sensitive to. This could be due to medicine or food. This could also be due to something you put on your skin or in your hair or something in the air. Often it is not possible to find out exactly what has caused your reaction. The goal of today's treatment is to relieve symptoms. The rash will usually fade over several days, but can sometimes last up to two weeks. Home Care: 1) If you know what you are allergic to, avoid it because future reactions could be worse than this one. 2) Avoid tight clothing and anything that heats up your skin (hot showers/baths, direct sunlight) since heat will make itching worse. 3) An ice pack will relieve local areas of intense itching and redness. Lanacaine cream or Solarcaine spray (or other product containing "benzocaine", available without a prescription) will reduce the itching. 4) Oral Benadryl (diphenhydramine) is an antihistamine available at drug and grocery stores. Unless a prescription antihistamine was given, Benadryl may be used to reduce itching if large areas of the skin are involved. Use lower doses during the daytime and higher doses at bedtime since the drug may make you sleepy. [NOTE: Do not use Benadryl if you have glaucoma or if you are a man with trouble urinating due to an enlarged prostate.] Claritin (loratidine) is an antihistamine that causes less drowsiness and is a good alternative for daytime use. Follow Up Follow Up with your doctor or this facility in two days if your symptoms do not continue to improve. If you had a severe reaction today, or if you have had several mild-moderate allergic reactions in the past, ask your doctor about allergy testing to find out what you are allergic to. If your reaction included dizziness, fainting or trouble breathing or swallowing, ask your doctor about carrying an Allergy Kit (injectable epinephrine) for home use. Get Prompt Medical Attention if any of the following occur: -- Trouble breathing or swallowing -- New or worse swelling in the face, eyelids, lips, mouth, tongue or throat -- Dizziness, weakness or fainting You have been given the following additional information: Hives Allergic Reaction, Other (General) Do not work today. (Electronically signed by Adenike Villegas MD 05/10/2017 22:22)
== END 2017-04-27 09:21 | disposition home or self-care (01) ==
LOC: ED SRH 07:30
DX: L50.0 Allergic urticaria (principal)